=== PATIENT | female | born 1980 | race African-American/Black ===

== ENCOUNTER 2016-08-12 23:55 | Emergency (ER) | payer SELFPAY ==
[~2016-08-12 23:55] MED LIST: CIPRO PO; DIFLUCAN100 MG PO; PYRIDIUM PO; PYRIDIUM100 MG PO
== END 2016-08-13 | disposition home or self-care (01) ==
LOC: CFTX 23:55
DX: H10.9 Unspecified conjunctivitis (principal); Z88.2 Allergy status to sulfonamides; Z91.040 Latex allergy status
CPT/HCPCS: 99283